=== PATIENT | female | born 1945 | race Caucasian/White ===

== ENCOUNTER 2017-11-13 11:35 | Inpatient (IN) | payer MEDICARE, OTHER ==
[~2017-11-13] VITALS: Ht 167.6 cm; Wt 70.3 kg
[2017-11-13] MEDS ORDERED: HYDROmorphone 2 MG/ML, 1ML IVPush PRN (12:00)
[2017-11-13] MEDS ORDERED: SODIUM CHLORIDE FLUSH 10ML SYR IVF ONE (12:00)
[2017-11-13] MEDS ORDERED: CEFAZOLIN PMX 1GM/50ML 50 ML IVPB ONE (12:00)
[2017-11-13] MEDS ORDERED: DIPH,PERTUSS(ACELL),TET VAC/PF 0.5 ML IM-VACC ONE ×2 (12:00→12:23)
[2017-11-13] MEDS ORDERED: HYDROmorphone 2 MG/ML, 1ML ONE (12:23)
[2017-11-13] MEDS ORDERED: CEFAZOLIN PMX 1GM/50ML 50 ML ONE (12:23)
[2017-11-13 12:25] LABS: BASOPHILS # (AUTO) 0.05 x10^3/uL (0-0.1); BASOPHILS % (AUTO) 1 % (0-1); EOSINOPHILS # (AUTO) 0.43 x10^3/uL (0-0.4); EOSINOPHILS % (AUTO) 4 % (1-7); LYMPHOCYTES # (AUTO) 1.91 x10^3/uL (1-3.4); LYMPHOCYTES % (AUTO) 19 % (22-44); MD NO; MEAN CORPUSCULAR HEMOGLOBIN 32.7 pg (27.0-34.8); MEAN CORPUSCULAR HGB CONC 33.9 g/dL (32.4-35.8); MEAN CORPUSCULAR VOLUME 96.3 fL (80-100); MEAN PLATELET VOLUME 8.1 fL (7.4-10.4); MONOCYTES # (AUTO) 0.68 x10^3/uL (0.2-0.8); MONOCYTES % (AUTO) 7 % (2-9); NEUTROPHILS # (AUTO) 7.19 x10^3/uL (1.8-6.8); NEUTROPHILS % (AUTO) 70 % (42-75); PLATELET COUNT 293 x10^3/uL (130-400); RED BLOOD COUNT 4.27 x10^6/uL (3.82-5.3); RED CELL DISTRIBUTION WIDTH 13.9 % (9.6-15.2)
[2017-11-13 12:30] LABS: ALBUMIN 3.4 g/dL (3.4-5.0); ANION GAP 4 mmol/L (5-15); CALCIUM 8.6 mg/dL (8.5-10.1); CHLORIDE 109 mmol/L (98-107); CREATININE 0.78 mg/dL (0.55-1.02)
[2017-11-13] MEDS ORDERED: LEVO25TA4 PO (12:53)
[2017-11-13] MEDS ORDERED: ATOR-2 PO (12:53)
[2017-11-13] MEDS ORDERED: METF500T17 PO (12:53)
[2017-11-13] MEDS ORDERED: GABA300C10 PO (12:53)
[2017-11-13] MEDS ORDERED: LISI-170 PO (12:53)
[2017-11-13] MEDS ORDERED: ACYC-114 PO (12:53)
[2017-11-13] MEDS ORDERED: ACETAMINOPHEN 325 MG TABLET PO PRN (13:00)
[2017-11-13] MEDS: LACTATED RINGERS 1,000 ML IV SCH (13:00)
[2017-11-13] MEDS ORDERED: POLYETHYLENE GLYCOL 17 GM PACKET PO PRN (13:00)
[2017-11-13] MEDS ORDERED: ENALAPRILAT 1.25 MG/ML, 2ML IVPush PRN (13:00)
[2017-11-13] MEDS ORDERED: ONDANSETRON ODT 4 MG PO PRN (13:00)
[2017-11-13 13:03] LABS: INTERNATIONAL NORMALIZED RATIO 0.91 (0.93-1.1)
[2017-11-13 13:05] LABS: PROTHROMBIN TIME 9.5 Seconds (9.6-11.5)
[2017-11-13] MEDS ORDERED: CEFAZOLIN PMX 1GM/50ML 50 ML IV ONE (13:30)
[2017-11-13] MEDS ORDERED: MIDAZOLAM 1 MG/ML, 2ML ONE (14:10)
[2017-11-13] MEDS ORDERED: FENTANYL PF 250 MCG/5ML ONE (14:11)
[2017-11-13] MEDS ORDERED: BUPIVACAINE/PF-EPI 0.5% 1:200K ONE (14:27)
[2017-11-13] MEDS ORDERED: BUPIVACAINE/PF-EPI 0.25% 1:200K ONE (14:27)
[2017-11-13] MEDS ORDERED: PROPOFOL 10 MG/ML, 20ML ONE (14:41)
[2017-11-13] MEDS ORDERED: SUCCINYLCHOLINE 20 MG/ML, 10ML ONE (14:41)
[2017-11-13] MEDS ORDERED: ROCURONIUM 10 MG/ML,10ML ONE (14:41)
[2017-11-13] MEDS ORDERED: CEFAZOLIN 1,000 MG ONE (14:41)
[2017-11-13] MEDS ORDERED: ONDANSETRON 2MG/ML, 2ML ONE (14:41)
[2017-11-13] MEDS: GABAPENTIN 300 MG CAPSULE PO SCH ×2 (16:00→20:44)
[2017-11-13] MEDS: metFORMIN 500 MG TABLET PO SCH ×2 (16:00→20:44)
[2017-11-13] MEDS ORDERED: OXYcodone 5 MG/5 ML ORAL.SOL UDC ONE ×2 (16:14→17:06)
[2017-11-13] MEDS ORDERED: FENTANYL PF 100 MCG/2ML ONE (16:14)
[2017-11-13] MEDS: OXYcodone 5 MG/5 ML ORAL.SOL UDC PO PRN ×2 (16:15→17:05)
[2017-11-13] MEDS: FENTANYL PF 100 MCG/2ML IV PRN ×2 (16:15→16:44)
[2017-11-13 17:20] VITALS: BP 129/66
[2017-11-13] MEDS ORDERED: METOCLOPRAMIDE 5 MG/ML, 2ML IV PRN (17:30)
[2017-11-13] MEDS ORDERED: ONDANSETRON 2MG/ML, 2ML IVPush PRN (17:30)
[2017-11-13] MEDS ORDERED: HYDROmorphone 1 MG/ML, 1ML IV PRN (17:30)
[2017-11-13] MEDS ORDERED: LABETALOL 5MG/ML, 20ML IV PRN (17:30)
[2017-11-13] MEDS ORDERED: KETOROLAC 30 MG/1 ML IV PRN (17:30)
[2017-11-13] MEDS ORDERED: MEPERIDINE/PF 25MG/0.5ML IVPush PRN (17:30)
[2017-11-13] MEDS ORDERED: PROMETHAZINE 25 MG/ML, 1ML IV PRN (17:30)
[2017-11-13] MEDS ORDERED: ALBUTEROL SULFATE 2.5 MG/3 ML NPPB PRN (17:30)
[2017-11-13] MEDS ORDERED: hydrALAzine 20 MG/ML, 1ML IV PRN (17:30)
[2017-11-13] MEDS: HYDROmorphone 2 MG/ML, 1ML IVPush PRN ×2 (18:40→21:33)
[2017-11-13] MEDS: NICOTINE 7 MG/24 HR PATCH.TD24 TD SCH (20:43)
[2017-11-13] MEDS: ATORVASTATIN 40 MG TABLET PO SCH (20:44)
[2017-11-14 00:17] VITALS: BP 99/65
[2017-11-14] MEDS: HYDROmorphone 2 MG/ML, 1ML IVPush PRN ×8 (00:28→23:31)
[2017-11-14] MEDS: LACTATED RINGERS 1,000 ML IV SCH ×2 (01:39→15:45)
[2017-11-14 04:21] VITALS: BP 102/65
[2017-11-14] MEDS: LEVOTHYROXINE 100 MCG TABLET PO SCH (06:04)
[2017-11-14] MEDS: metFORMIN 500 MG TABLET PO SCH ×4 (06:04→21:13)
[2017-11-14 06:58] VITALS: BP 101/63
[2017-11-14] MEDS ORDERED: OXYcodone 5 MG/5 ML ORAL.SOL UDC PO PRN (08:30)
[2017-11-14] MEDS ORDERED: OXYcodone IR 5MG TABLET PO PRN (08:42)
[2017-11-14] MEDS: GABAPENTIN 300 MG CAPSULE PO SCH ×3 (08:48→21:13)
[2017-11-14] MEDS: ACYCLOVIR 400 MG TABLET PO SCH (08:48)
[2017-11-14] MEDS: SENNA/DOCUSATE TABLET PO SCH (08:48)
[2017-11-14] MEDS: CEPHALEXIN 500 MG CAPSULE PO SCH ×3 (08:48→21:13)
[2017-11-14] MEDS: LISINOPRIL 5 MG TABLET PO SCH (08:49)
[2017-11-14 13:35] VITALS: BP 96/59
[2017-11-14 18:49] VITALS: BP 108/67
[2017-11-14] MEDS: NICOTINE 7 MG/24 HR PATCH.TD24 TD SCH (20:32)
[2017-11-14] MEDS: ATORVASTATIN 40 MG TABLET PO SCH (21:13)
[2017-11-14] MEDS: OXYcodone IR 5MG TABLET PO PRN (21:13)
[2017-11-15] MEDS: CEPHALEXIN 500 MG CAPSULE PO SCH ×2 (02:37→07:53)
[2017-11-15] MEDS: OXYcodone IR 5MG TABLET PO PRN (02:38)
[2017-11-15 02:43] VITALS: BP 110/61
[2017-11-15] MEDS: LACTATED RINGERS 1,000 ML IV SCH (04:03)
[2017-11-15] MEDS: LEVOTHYROXINE 100 MCG TABLET PO SCH (06:14)
[2017-11-15] MEDS: metFORMIN 500 MG TABLET PO SCH ×2 (06:14→11:05)
[2017-11-15 06:55] VITALS: BP 116/66
[2017-11-15] MEDS ORDERED: DIPHENHYDRAMINE 25 MG CAPSULE PO PRN (07:00)
[2017-11-15] MEDS ORDERED: CEPH-376 PO (07:29)
[2017-11-15] MEDS ORDERED: HYDR-3240 PO (07:29)
[2017-11-15] MEDS: HYDROcodone/APAP 5/325 TABLET PO PRN ×2 (07:52→12:58)
[2017-11-15] MEDS: ACYCLOVIR 400 MG TABLET PO SCH (07:53)
[2017-11-15] MEDS: GABAPENTIN 300 MG CAPSULE PO SCH (07:53)
[2017-11-15] MEDS: SENNA/DOCUSATE TABLET PO SCH (07:53)
[2017-11-15] MEDS: LISINOPRIL 5 MG TABLET PO SCH (07:54)
[2017-11-15 13:31] VITALS: BP 98/46
== END 2017-11-15 14:10 | disposition home or self-care (01) | DRG 513 ==
LOC: ED 12:23 → INTOOBSV 12:51 → 4NOR 12:51 → OBSVTOIN 11-14 10:19 → DCLOUNGE 11-15 13:56
PROVIDERS: ADMIT Family Medicine; ATTEND Family Medicine
PROC: 0PST04Z Reposition Right Finger Phalanx with Internal Fixation Device, Open Approach (ICD-10-PCS; 2017-11-13)
PROC: 0JQJ0ZZ Repair Right Hand Subcutaneous Tissue and Fascia, Open Approach (ICD-10-PCS; principal; 2017-11-13 14:00)
DX: S62.602B Fracture of unspecified phalanx of right middle finger, initial encounter for open fracture (principal); S82.045A Nondisplaced comminuted fracture of left patella, initial encounter for closed fracture; B02.9 Zoster without complications; S62.604B Fracture of unspecified phalanx of right ring finger, initial encounter for open fracture; S62.606B Fracture of unspecified phalanx of right little finger, initial encounter for open fracture; E03.9 Hypothyroidism, unspecified; S80.219A Abrasion, unspecified knee, initial encounter; S61.411A Laceration without foreign body of right hand, initial encounter; E78.5 Hyperlipidemia, unspecified; F17.210 Nicotine dependence, cigarettes, uncomplicated; E11.40 Type 2 diabetes mellitus with diabetic neuropathy, unspecified; I10 Essential (primary) hypertension; W01.0XXA Fall on same level from slipping, tripping and stumbling without subsequent striking against object, initial encounter; Y93.89 Activity, other specified; Y92.481 Parking lot as the place of occurrence of the external cause; Y99.8 Other external cause status; Z79.84 Long term (current) use of oral hypoglycemic drugs; Z88.6 Allergy status to analgesic agent
CPT/HCPCS: 36415; 71045; 76000; 80048; 82040; 82962; 85025; 85610; 85730; 90471; 90715; 93005; 96365; 96375; 99285; G0378; J0690; J1170; J2250; J2405; J2704; J3010; J0330; J7120; Q0163

== ENCOUNTER 2019-09-24 22:27 | Emergency (ER) | payer MEDICARE, OTHER ==
[~2019-09-24] VITALS: Ht 167.6 cm; Wt 76.0 kg
[~2019-09-24 22:27] MED LIST: ACYC-114 PO; ATOR-2 PO; CEPH-376 PO; GABA300C10 PO; HYDR-3240 PO; LEVO25TA4 PO; LISI-170 PO; METF500T17 PO
--- NOTE | 2019-09-24 22:38 | NUR ---
THIS PT WAS BIB [facility] FROM HOME, WHERE SHE LIVES ALONE. PT WAS ATTEMPTING TO PUT HER ANKLET BRACELET BACK ON WITH FOOT ON TOILET WHEN SHE LOST HER BALANCE AND FELL ON HER LEFT WRIST. PT DENIES FEELING DIZZY PRIOR, DENIES HITTING HEAD, DOES NOT TAKE A BLOOD THINNER. CMS IS INTACT. PT LAST ATE AT 7PM. CURRENTLY SITTING IN BED, BELONGINGS AND CALL LIGHT IN REACH, CONNECTED TO BP AND O2 MONITORS. BED RAILS UPX2. WILL CONTINUE TO MONITOR.
--- NOTE | 2019-09-24 23:09 | NUR ---
PT SLEEPING, EYES CLOSED, RESPIRATIONS EVEN AND UNLABORED, PT HAS ICE PACK ON WRIST AND IS ELEVATING EXTREMITY, SHE HAS BEEN TO IMAGING.
--- NOTE | 2019-09-24 23:26 | NUR ---
PT AWAKE, SITTING IN BED, CONVERSING WITH THIS RN. ALL NEEDS MET AT THIS TIME.
[2019-09-24] MEDS ORDERED: MORPHINE SULFATE 4 MG/ML, 1ML IVPush ONE (23:30)
--- NOTE | 2019-09-24 23:35 | NUR ---
THEATER MANAGER TO ROOM TO PLACE SPLINT. PT TOLERATED WELL.
[2019-09-25 00:04] VITALS: BP 116/60
== END 2019-09-25 00:32 | disposition home or self-care (01) ==
LOC: ED 22:46
DX: S52.572A Other intraarticular fracture of lower end of left radius, initial encounter for closed fracture (principal); E11.9 Type 2 diabetes mellitus without complications; W01.0XXA Fall on same level from slipping, tripping and stumbling without subsequent striking against object, initial encounter; Y93.89 Activity, other specified; Y92.098 Other place in other non-institutional residence as the place of occurrence of the external cause; Y99.8 Other external cause status
CPT/HCPCS: 29125; 99283

== ENCOUNTER → 2019-11-21 | Outpatient (CLI) | payer MEDICARE | END | disposition home or self-care (01) | LOC: CVU 12:53 | PROVIDERS: ATTEND Internal Medicine Cardiovascular Disease | DX: I08.0 Rheumatic disorders of both mitral and aortic valves (principal); I70.203 Unspecified atherosclerosis of native arteries of extremities, bilateral legs; R07.9 Chest pain, unspecified | CPT/HCPCS: 93306; 93922 ==

== ENCOUNTER → 2019-12-29 | Outpatient (CLI) | payer MEDICARE ==
[~2019-12-29] MED LIST changes: +REGADENOSON 0.4 MG/5 ML SYRINGE ONE
== END | disposition home or self-care (01) ==
LOC: CFH 07:34
PROVIDERS: ATTEND Internal Medicine Cardiovascular Disease
DX: R07.9 Chest pain, unspecified (principal); I73.9 Peripheral vascular disease, unspecified; E11.9 Type 2 diabetes mellitus without complications
CPT/HCPCS: 78452; 93017; A9502; J2785

== ENCOUNTER → 2020-10-05 | Outpatient (CLI) | payer MEDICARE ==
[~2020-10-05] MED LIST changes: -ACYC-114 PO; +ACYC-40 PO; +HYDR-2214 PO; -HYDR-3240 PO; -REGADENOSON 0.4 MG/5 ML SYRINGE ONE
== END | disposition home or self-care (01) ==
LOC: ROC 08:45
PROVIDERS: ATTEND Radiology Radiation Oncology
DX: G50.0 Trigeminal neuralgia (principal); G47.00 Insomnia, unspecified; E11.9 Type 2 diabetes mellitus without complications; E78.00 Pure hypercholesterolemia, unspecified; M19.90 Unspecified osteoarthritis, unspecified site; F17.210 Nicotine dependence, cigarettes, uncomplicated; Z90.710 Acquired absence of both cervix and uterus
CPT/HCPCS: 99214; G0463